=== PATIENT | female | born 1955 | race Caucasian/White ===

== ENCOUNTER 2018-01-08 12:52 | Emergency (ER) | payer OTHER ==
[2018-01-08 13:32] LABS: ADD MAN DIFF? NO
[2018-01-08 13:34] LABS: WHITE BLOOD COUNT 9.1 10^3/ul (4.8-10.8)
[2018-01-08 13:34] LABS: BASOPHILS % 0.3 % (0.0-2.0); EOSINOPHILS % 0.2 % (0.0-7.0); HEMATOCRIT 40.6 % (37.0-47.0); HEMOGLOBIN 13.9 g/dl (12.0-16.0); LYMPHOCYTES # 2.3 10^3/ul (0.8-2.9); LYMPHOCYTES % 25.2 % (15.0-51.0); MEAN CORPUSCULAR HGB CONC 34.2 g/dl (32.0-37.0); MEAN CORPUSCULAR VOLUME 90.4 fl (82.0-101.0); MEAN PLATELET VOLUME 9.2 fl (7.4-10.4); MONOCYTE # 0.5 10^3/ul (0.3-0.9); MONOCYTES % 5.9 % (0.0-11.0); NEUTROPHIL # 6.2 10^3/ul (1.6-7.5); NEUTROPHILS % 68.1 % (39.0-77.0); PLATELET COUNT 404 10^3/UL (140-415); RED BLOOD COUNT 4.49 10^6/ul (4.20-5.40); RED CELL DISTRIBUTION WIDTH 12.6 % (11.5-14.5)
[2018-01-08 14:03] LABS: INR 0.95; PROTIME 12.8 Sec (11.9-14.9)
[2018-01-08 14:23] LABS: ANION GAP 20 (8-16); BLOOD UREA NITROGEN 15 mg/dl (7-20); CALCIUM 9.8 mg/dl (8.4-10.2); CARBON DIOXIDE 27 mmol/L (21-31); CHLORIDE 101 mmol/L (97-110); CREATININE 0.65 mg/dl (0.44-1.00); GLUCOSE 144 mg/dl (70-220); POTASSIUM 4.1 mmol/L (3.5-5.1); SODIUM 144 mmol/L (135-144)
[2018-01-08] MEDS ORDERED: SOD CHLORIDE 0.9% 100 ML (14:33)
[2018-01-08] MEDS ORDERED: IOHEXOL 100 ML (14:33)
[2018-01-08 14:35] LABS: B-TYPE NATRIURETIC PEPTIDE 26 PG/ML (0-125)
[2018-01-08 14:36] LABS: TROPONIN-I < 0.012 ng/ml (0.00-0.12)
[2018-01-08] MEDS: LEVOFLOXACIN 750 MG TABLET PO (15:20)
== END 2018-01-08 17:15 | disposition home or self-care (01) ==
LOC: E/R 12:52
DX: J18.1 Lobar pneumonia, unspecified organism (principal); R06.00 Dyspnea, unspecified; R00.0 Tachycardia, unspecified; Z85.118 Personal history of other malignant neoplasm of bronchus and lung
CPT/HCPCS: 36415; 71045; 80048; 83880; 84484; 85025; 85610; 93005; 99285-25

== ENCOUNTER 2018-03-20 07:21 | Day surgery (SDC) | payer OTHER ==
[2018-03-20] MEDS: SOD CHLORIDE 0.9% 1,000 ML IV (10:40)
[2018-03-20] MEDS: FENTAnyl 50 MCG/ML VIAL (10:50)
[2018-03-20] MEDS: MIDAZOLAM 1 MG/ML 2 ML INJ (10:50)
[2018-03-20] MEDS: LIDOCAINE 1% (MDV) 10 ML INJ ×2 (11:20)
== END 2018-03-20 16:05 | disposition home or self-care (01) ==
LOC: SDS 07:21
DX: C34.92 Malignant neoplasm of unspecified part of left bronchus or lung (principal)
CPT/HCPCS: 32405; 77012; 88307; 88313

== ENCOUNTER 2018-04-07 00:17 | Emergency (ER) | payer OTHER ==
[2018-04-07 01:04] LABS: ADD MAN DIFF? NO
[2018-04-07 01:08] LABS: BASOPHILS % 0.3 % (0.0-2.0); EOSINOPHILS # 0.1 10^3/ul (0.0-0.5); EOSINOPHILS % 0.5 % (0.0-7.0); HEMATOCRIT 36.4 % (37.0-47.0); HEMOGLOBIN 12.3 g/dl (12.0-16.0); LYMPHOCYTES # 1.1 10^3/ul (0.8-2.9); LYMPHOCYTES % 10.5 % (15.0-51.0); MEAN CORPUSCULAR HEMOGLOBIN 30.7 pg (29.0-33.0); MEAN CORPUSCULAR HGB CONC 33.8 g/dl (32.0-37.0); MEAN CORPUSCULAR VOLUME 90.8 fl (82.0-101.0); MEAN PLATELET VOLUME 9.1 fl (7.4-10.4); MONOCYTE # 0.9 10^3/ul (0.3-0.9); MONOCYTES % 8.5 % (0.0-11.0); NEUTROPHIL # 8.3 10^3/ul (1.6-7.5); NEUTROPHILS % 79.9 % (39.0-77.0); PLATELET COUNT 368 10^3/UL (140-415); RED BLOOD COUNT 4.01 10^6/ul (4.20-5.40); RED CELL DISTRIBUTION WIDTH 12.9 % (11.5-14.5)
[2018-04-07 01:08] LABS: WHITE BLOOD COUNT 10.4 10^3/ul (4.8-10.8)
[2018-04-07 01:27] LABS: ALANINE AMINOTRANSFERASE 17 IU/L (13-69); ALBUMIN 4.2 g/dl (3.3-4.9); ALBUMIN/GLOBULIN RATIO 1.31; ALKALINE PHOSPHATASE 93 IU/L (42-121); ANION GAP 12 (8-16); ASPARTATE AMINO TRANSFERASE 23 IU/L (15-46); BILIRUBIN,INDIRECT 0.5 mg/dl (0-1.1); BILIRUBIN,TOTAL 0.5 mg/dl (0.2-1.3); BLOOD UREA NITROGEN 9 mg/dl (7-20); CALCIUM 9.6 mg/dl (8.4-10.2); CARBON DIOXIDE 25 mmol/L (21-31); CHLORIDE 107 mmol/L (97-110); CREATININE 0.57 mg/dl (0.44-1.00); GLUCOSE 119 mg/dl (70-220); LIPASE 59 U/L (23-300); POTASSIUM 3.8 mmol/L (3.5-5.1); SODIUM 140 mmol/L (135-144); TOTAL PROTEIN 7.4 g/dl (6.1-8.1)
[2018-04-07 01:38] LABS: TROPONIN-I < 0.010 ng/ml (0.000-0.120)
[2018-04-07] MEDS: ALPRAZOLAM 0.25 MG TAB PO (01:40)
== END 2018-04-07 03:58 | disposition home or self-care (01) ==
LOC: E/R 00:17
DX: F41.9 Anxiety disorder, unspecified (principal); Z85.118 Personal history of other malignant neoplasm of bronchus and lung; Z85.3 Personal history of malignant neoplasm of breast
CPT/HCPCS: 36415; 71045; 80053; 83690; 84484; 85025; 93005; 99285-25

== ENCOUNTER 2018-06-08 09:45 | Inpatient (IN) | payer OTHER ==
[2018-06-08] MEDS: HEPARIN 5,000 UNIT/0.5 ML VIAL SC (08:00)
[2018-06-08 10:40] LABS: ADD MAN DIFF? NO
[2018-06-08] MEDS: SODIUM CHLORIDE 0.9% 1L BAG IV* (10:40)
[2018-06-08 10:43] LABS: ADD UMIC YES; UR ASCORBIC ACID NEGATIVE (NEGATIVE); UR BILIRUBIN (Dip) NEGATIVE (NEGATIVE); UR BLOOD (Dip) 1+ mg/dL (NEGATIVE); UR CLARITY CLEAR (CLEAR); UR COLOR YELLOW (YELLOW); UR GLUCOSE (Dip) NEGATIVE (NEGATIVE); UR KETONES (Dip) NEGATIVE (NEGATIVE); UR LEUKOCYTE ESTERASE (Dip) NEGATIVE Leu/ul (NEGATIVE); UR NITRITE (Dip) NEGATIVE (NEGATIVE); UR RBC 1 /HPF (0-5); UR SPECIFIC GRAVITY (Dip) 1.013 (1.003-1.030); UR TOTAL PROTEIN (Dip) NEGATIVE (NEGATIVE); UR UROBILINOGEN (Dip) NEGATIVE (NEGATIVE); UR WBC 0 /HPF (0-5)
[2018-06-08 10:46] LABS: BASOPHILS % 0.3 % (0.0-2.0); EOSINOPHILS % 0.1 % (0.0-7.0); HEMATOCRIT 35.4 % (37.0-47.0); HEMOGLOBIN 11.6 g/dl (12.0-16.0); LYMPHOCYTES # 1.3 10^3/ul (0.8-2.9); LYMPHOCYTES % 11.3 % (15.0-51.0); MEAN CORPUSCULAR HEMOGLOBIN 28.4 pg (29.0-33.0); MEAN CORPUSCULAR HGB CONC 32.8 g/dl (32.0-37.0); MEAN CORPUSCULAR VOLUME 86.8 fl (82.0-101.0); MEAN PLATELET VOLUME 9.7 fl (7.4-10.4); MONOCYTE # 1.3 10^3/ul (0.3-0.9); MONOCYTES % 11.2 % (0.0-11.0); NEUTROPHILS % 76.7 % (39.0-77.0); PLATELET COUNT 300 10^3/UL (140-415); RED BLOOD COUNT 4.08 10^6/ul (4.20-5.40); RED CELL DISTRIBUTION WIDTH 13.7 % (11.5-14.5)
[2018-06-08 10:46] LABS: WHITE BLOOD COUNT 11.7 10^3/ul (4.8-10.8)
[2018-06-08 11:03] LABS: ANION GAP 12 (8-16); BLOOD UREA NITROGEN 16 mg/dl (7-20); CALCIUM 8.7 mg/dl (8.4-10.2); CARBON DIOXIDE 25 mmol/L (21-31); CHLORIDE 103 mmol/L (97-110); CREATININE 0.44 mg/dl (0.44-1.00); GLUCOSE 100 mg/dl (70-220); POTASSIUM 3.7 mmol/L (3.5-5.1); SODIUM 136 mmol/L (135-144)
[2018-06-08 11:05] LABS: INR 0.99; PROTIME 13.2 Sec (11.9-14.9)
[2018-06-08 11:06] LABS: PARTIAL THROMBOPLASTIN TIME 29.6 Sec (25.0-35.0)
[2018-06-08 11:14] LABS: TROPONIN-I < 0.012 ng/ml (0.000-0.120)
[2018-06-08] MEDS: AZTREONAM 1 GM/NS (PMX) 50 ML IVPB ×3 (11:23→22:22)
[2018-06-08] MEDS ORDERED: ONDANSETRON 4 MG INJ IV ×2 (11:30→14:00)
[2018-06-08] MEDS ORDERED: ACETAMINOPHEN 325 MG TAB PO ×2 (11:30→14:00)
[2018-06-08 11:40] LABS: LACTIC ACID 1.1 mmol/L (0.5-2.0)
[2018-06-08] MEDS: VANCOMYCIN 1 GM (PMX) 250 ML IVPB ×2 (11:53→17:04)
[2018-06-08] MEDS: IOHEXOL 100 ML (12:26)
[2018-06-08] MEDS: SOD CHLORIDE 0.9% 100 ML (12:26)
[2018-06-08 12:58] LABS: LACTIC ACID 1.5 mmol/L (0.5-2.0)
[2018-06-08] MEDS ORDERED: ALBUTEROL 0.083% (NEB) 2.5 MG/3 ML AMP HHN (14:00)
[2018-06-08] MEDS ORDERED: NON-FORMULARY/PATIENT OWN MED (Hydrocodone/Acetaminophen (Norco 5-325 Tablet) 1 EACH) PO (14:00)
[2018-06-08] MEDS ORDERED: VANCOMYCIN IV PER PHARMACY XX (14:00)
[2018-06-08] MEDS ORDERED: AZTREONAM 1 GM/NS (PMX) 50 ML IVPB ×2 (14:00→21:00)
[2018-06-08 14:42] LABS: CARCINOEMBRYONIC ANTIGEN 1.9 ng/ml (0.0-5.0)
[2018-06-08 14:48] LABS: LACTIC ACID 1.4 mmol/L (0.5-2.0)
[2018-06-08] MEDS: FUROSEMIDE 20 MG INJ IV (15:52)
[2018-06-08] MEDS: HYDROCODONE/APAP (5/325) TAB PO ×3 (16:13→22:23)
[2018-06-08] MEDS: ALBUTEROL 0.083% (NEB) 2.5 MG/3 ML AMP HHN (16:30)
[2018-06-08] MEDS: DOCUSATE SODIUM 100 MG CAP PO (21:00)
[2018-06-08] MEDS ORDERED: VANCOMYCIN 750 MG in SOD CHLORIDE 0.9% 150 ML IVPB (22:00)
[2018-06-08 23:35] LABS: CREATINE KINASE 21 IU/L (23-200)
[2018-06-08 23:48] LABS: CK INDEX 1.1; CK-MB 0.23 ng/ml (0.0-2.4); TROPONIN-I < 0.012 ng/ml (0.000-0.120)
[2018-06-09] MEDS: HYDROCODONE/APAP (5/325) TAB PO ×4 (04:24→21:21)
[2018-06-09] MEDS: VANCOMYCIN 1 GM (PMX) 250 ML IVPB ×2 (05:04→18:13)
[2018-06-09] MEDS: PANTOPRAZOLE (EC) 40 MG TAB PO ×2 (06:00→07:02)
[2018-06-09 06:15] LABS: ADD MAN DIFF? NO
[2018-06-09 06:22] LABS: BASOPHILS % 0.2 % (0.0-2.0); EOSINOPHILS % 0.3 % (0.0-7.0); HEMATOCRIT 32.7 % (37.0-47.0); HEMOGLOBIN 10.6 g/dl (12.0-16.0); LYMPHOCYTES # 0.9 10^3/ul (0.8-2.9); LYMPHOCYTES % 7.5 % (15.0-51.0); MEAN CORPUSCULAR HEMOGLOBIN 28.1 pg (29.0-33.0); MEAN CORPUSCULAR HGB CONC 32.4 g/dl (32.0-37.0); MEAN CORPUSCULAR VOLUME 86.7 fl (82.0-101.0); MEAN PLATELET VOLUME 9.6 fl (7.4-10.4); MONOCYTE # 1.1 10^3/ul (0.3-0.9); MONOCYTES % 9.1 % (0.0-11.0); NEUTROPHIL # 10.3 10^3/ul (1.6-7.5); NEUTROPHILS % 82.3 % (39.0-77.0); PLATELET COUNT 285 10^3/UL (140-415); RED BLOOD COUNT 3.77 10^6/ul (4.20-5.40); RED CELL DISTRIBUTION WIDTH 13.7 % (11.5-14.5)
[2018-06-09 06:22] LABS: WHITE BLOOD COUNT 12.5 10^3/ul (4.8-10.8)
[2018-06-09 06:50] LABS: ALANINE AMINOTRANSFERASE 25 IU/L (13-69); ALBUMIN 2.6 g/dl (3.3-4.9); ALKALINE PHOSPHATASE 91 IU/L (42-121); ANION GAP 11 (8-16); ASPARTATE AMINO TRANSFERASE 15 IU/L (15-46); BILIRUBIN,INDIRECT 0.4 mg/dl (0-1.1); BILIRUBIN,TOTAL 0.4 mg/dl (0.2-1.3); BLOOD UREA NITROGEN 8 mg/dl (7-20); CALCIUM 8.3 mg/dl (8.4-10.2); CARBON DIOXIDE 26 mmol/L (21-31); CHLORIDE 102 mmol/L (97-110); GLUCOSE 113 mg/dl (70-220); MAGNESIUM 1.8 mg/dl (1.7-2.5); POTASSIUM 3.3 mmol/L (3.5-5.1); SODIUM 136 mmol/L (135-144); TOTAL PROTEIN 5.3 g/dl (6.1-8.1)
[2018-06-09 06:53] LABS: CREATINE KINASE 21 IU/L (23-200)
[2018-06-09 06:54] LABS: CK INDEX 1.3; CK-MB 0.28 ng/ml (0.0-2.4); TROPONIN-I < 0.012 ng/ml (0.000-0.120)
[2018-06-09] MEDS: AZTREONAM 1 GM/NS (PMX) 50 ML IVPB ×3 (07:02→22:01)
[2018-06-09] MEDS: LEVALBUTEROL (NEB) 0.63 MG/3 ML AMP HHN ×3 (08:38→19:52)
[2018-06-09] MEDS: DOCUSATE SODIUM 100 MG CAP PO ×2 (09:00→21:00)
[2018-06-09] MEDS ORDERED: POTASSIUM CHLORIDE (SR) 20 MEQ TAB PO (14:22)
[2018-06-09] MEDS: LIDOCAINE 1% (MPF) 5 ML VIAL (15:54)
[2018-06-09] MEDS: POTASSIUM CHLORIDE 100 ML IVPB (16:13)
[2018-06-10] MEDS: HYDROCODONE/APAP (5/325) TAB PO (02:23)
[2018-06-10 03:45] LABS: ADD MAN DIFF? NO
[2018-06-10 04:05] LABS: BASOPHILS % 0.2 % (0.0-2.0); EOSINOPHILS # 0.1 10^3/ul (0.0-0.5); EOSINOPHILS % 0.5 % (0.0-7.0); HEMATOCRIT 33.7 % (37.0-47.0); LYMPHOCYTES # 0.9 10^3/ul (0.8-2.9); LYMPHOCYTES % 8.4 % (15.0-51.0); MEAN CORPUSCULAR HEMOGLOBIN 28.9 pg (29.0-33.0); MEAN CORPUSCULAR HGB CONC 32.6 g/dl (32.0-37.0); MEAN CORPUSCULAR VOLUME 88.5 fl (82.0-101.0); MEAN PLATELET VOLUME 9.5 fl (7.4-10.4); MONOCYTE # 0.8 10^3/ul (0.3-0.9); NEUTROPHIL # 8.7 10^3/ul (1.6-7.5); NEUTROPHILS % 82.5 % (39.0-77.0); PLATELET COUNT 285 10^3/UL (140-415); RED BLOOD COUNT 3.81 10^6/ul (4.20-5.40); RED CELL DISTRIBUTION WIDTH 13.6 % (11.5-14.5)
[2018-06-10 04:05] LABS: WHITE BLOOD COUNT 10.5 10^3/ul (4.8-10.8)
[2018-06-10 04:06] LABS: ANION GAP 11 (8-16); BLOOD UREA NITROGEN 9 mg/dl (7-20); CALCIUM 8.5 mg/dl (8.4-10.2); CARBON DIOXIDE 27 mmol/L (21-31); CHLORIDE 104 mmol/L (97-110); CREATININE 0.43 mg/dl (0.44-1.00); GLUCOSE 126 mg/dl (70-220); POTASSIUM 3.6 mmol/L (3.5-5.1); SODIUM 138 mmol/L (135-144)
[2018-06-10 04:25] LABS: VANCOMYCIN,TROUGH 7.3 ug/ml (10.0-20.0)
[2018-06-10] MEDS: VANCOMYCIN 1 GM (PMX) 250 ML IVPB ×3 (04:40→21:00)
[2018-06-10] MEDS: PANTOPRAZOLE (EC) 40 MG TAB PO (06:00)
[2018-06-10] MEDS: AZTREONAM 1 GM/NS (PMX) 50 ML IVPB ×3 (07:14→23:09)
[2018-06-10] MEDS: HYDROCODONE/APAP (7.5/325) TAB PO ×3 (07:48→20:24)
[2018-06-10] MEDS: DOCUSATE SODIUM 100 MG CAP PO ×2 (07:48→21:00)
[2018-06-10] MEDS: LEVALBUTEROL (NEB) 0.63 MG/3 ML AMP HHN ×3 (08:00→20:00)
[2018-06-11] MEDS: HYDROCODONE/APAP (7.5/325) TAB PO ×2 (02:03→07:53)
[2018-06-11 05:05] LABS: ADD MAN DIFF? NO
[2018-06-11 05:06] LABS: WHITE BLOOD COUNT 11.8 10^3/ul (4.8-10.8)
[2018-06-11 05:06] LABS: BASOPHILS % 0.2 % (0.0-2.0); EOSINOPHILS # 0.1 10^3/ul (0.0-0.5); EOSINOPHILS % 0.7 % (0.0-7.0); HEMATOCRIT 32.8 % (37.0-47.0); HEMOGLOBIN 10.9 g/dl (12.0-16.0); LYMPHOCYTES # 1.2 10^3/ul (0.8-2.9); LYMPHOCYTES % 10.3 % (15.0-51.0); MEAN CORPUSCULAR HEMOGLOBIN 29.3 pg (29.0-33.0); MEAN CORPUSCULAR HGB CONC 33.2 g/dl (32.0-37.0); MEAN CORPUSCULAR VOLUME 88.2 fl (82.0-101.0); MEAN PLATELET VOLUME 9.2 fl (7.4-10.4); MONOCYTE # 1.1 10^3/ul (0.3-0.9); MONOCYTES % 9.4 % (0.0-11.0); NEUTROPHIL # 9.3 10^3/ul (1.6-7.5); PLATELET COUNT 292 10^3/UL (140-415); RED BLOOD COUNT 3.72 10^6/ul (4.20-5.40); RED CELL DISTRIBUTION WIDTH 13.7 % (11.5-14.5)
[2018-06-11 05:38] LABS: ANION GAP 8 (8-16); BLOOD UREA NITROGEN 10 mg/dl (7-20); CALCIUM 8.4 mg/dl (8.4-10.2); CARBON DIOXIDE 30 mmol/L (21-31); CHLORIDE 103 mmol/L (97-110); CREATININE 0.39 mg/dl (0.44-1.00); GLUCOSE 94 mg/dl (70-220); POTASSIUM 3.7 mmol/L (3.5-5.1); SODIUM 137 mmol/L (135-144)
[2018-06-11] MEDS: VANCOMYCIN 1 GM (PMX) 250 ML IVPB ×2 (05:44→12:18)
[2018-06-11] MEDS: PANTOPRAZOLE (EC) 40 MG TAB PO (05:47)
[2018-06-11] MEDS: AZTREONAM 1 GM/NS (PMX) 50 ML IVPB (07:54)
[2018-06-11] MEDS: DOCUSATE SODIUM 100 MG CAP PO (07:54)
[2018-06-11] MEDS: LEVALBUTEROL (NEB) 0.63 MG/3 ML AMP HHN (08:00)
== END 2018-06-11 13:00 | disposition home or self-care (01) | DRG 180 ==
LOC: E/R 09:45 → 5EC 11:17 → 6WM 14:57
PROC: 0W9B3ZX Drainage of Left Pleural Cavity, Percutaneous Approach, Diagnostic (ICD-10-PCS; principal; 2018-06-09)
DX: C34.12 Malignant neoplasm of upper lobe, left bronchus or lung (principal); J18.9 Pneumonia, unspecified organism; J91.0 Malignant pleural effusion; C77.9 Secondary and unspecified malignant neoplasm of lymph node, unspecified; C79.51 Secondary malignant neoplasm of bone; J98.11 Atelectasis; R13.19 Other dysphagia; D50.9 Iron deficiency anemia, unspecified; D63.8 Anemia in other chronic diseases classified elsewhere; D63.0 Anemia in neoplastic disease; E87.6 Hypokalemia; M75.92 Shoulder lesion, unspecified, left shoulder; R50.9 Fever, unspecified
CPT/HCPCS: 32555; 36415; 71045; 71275; 80048; 80076; 80202; 81001; 82378; 82550; 82553; 83605; 83735; 84484; 85025; 85610; 85730; 87040; 87070; 87086; 87102; 87116; 93005; 93306; 94640; 94664; 99291-25